=== PATIENT | male | born 1975 | race Caucasian/White ===

== ENCOUNTER 2016-08-16 13:47 | Emergency (ER) | payer SELFPAY ==
[2016-08-16] MEDS ORDERED: Adacel (T-DAP) 0.5 ML VIAL ONE (13:56)
[2016-08-16] MEDS ORDERED: Lisinopril 5 MG TAB ONE (14:19)
== END 2016-08-16 14:27 | disposition home or self-care (01) ==
LOC: BURERS 13:47
DX: S01.01XA Laceration without foreign body of scalp, initial encounter (principal); I10 Essential (primary) hypertension; F17.200 Nicotine dependence, unspecified, uncomplicated; W22.8XXA Striking against or struck by other objects, initial encounter
CPT/HCPCS: 12001; 90471; 90715